=== PATIENT | female | born 1980 | race American Indian/Alaskan Native ===

== ENCOUNTER 2017-01-01 09:28 | Emergency (ER) | payer MEDICAID, MEDICARE, OTHER ==
[2017-01-01 09:49] VITALS: BMI 40.2
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
[2017-01-01] MEDS ORDERED: Amoxicillin-Clav 875-125 mg Tab PO STA (10:01)
[2017-01-01] MEDS ORDERED: Lidocaine 5% Patch TD STA (10:01)
[2017-01-01 10:31] VITALS: RESP 18; TEMP 98.5
[2017-01-01 10:51] VITALS: BP 149/80; PULSE 82; O2SAT 99
== END 2017-01-01 10:53 | disposition home or self-care (01) ==
LOC: ED 09:28
DX: J32.9 Chronic sinusitis, unspecified (principal); M54.9 Dorsalgia, unspecified; G89.29 Other chronic pain
CPT/HCPCS: 96372; 99285; J1885

== ENCOUNTER 2017-05-13 16:43 | Emergency (ER) | payer MEDICAID ==
[2017-05-13 17:05] VITALS: BMI 41.6
[2017-05-13 17:10] VITALS: BP 149/93; PULSE 91; RESP 18; TEMP 98.5; O2SAT 100
[2017-05-13] MEDS ORDERED: Tmp-Smz 800 mg-160 mg DS Tab PO STA (17:24)
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
== END 2017-05-13 18:00 | disposition home or self-care (01) ==
LOC: ED 16:43
DX: E65 Localized adiposity (principal); L03.311 Cellulitis of abdominal wall; I10 Essential (primary) hypertension